=== PATIENT | female | born 1975 | race African-American/Black ===

== ENCOUNTER 2016-08-04 21:48 | Emergency (ER) | payer OTHER ==
[2016-08-04 21:53] VITALS: BP 180/90; PULSE 84; TEMP 98.1; BMI 39.5
[2016-08-04] MEDS ORDERED: OXYCODONE/APAP 5/325MG COMBO TABLET PO ONE (22:17)
--- NOTE | 2016-08-04 22:19 | PDOC ---
History of Present Illness - General History Source: Patient <Douglas Guadalupe - Last Filed: 08/05/16 02:11> - General History Source: Patient Exam Limitations: No Limitations - History of Present Illness Initial Comments: 08/04/16 22:23 The patient is a 41 year old female with no significant past medical history, who presents to the ER with left upper extremity pain s/p trip and fall earlier today. Patient states she tripped and fell down the stairs. She states she landed on her left shoulder, left elbow, and left wrist. On interview, patient reports she is unable to move her left upper extremity secondary to pain. Patient says she is right hand dominant. Denies head or neck trauma Denies loss of consciousness Denies nausea, vomiting Denies paresthesia or numbness <Suzanne Breen - Last Filed: 08/05/16 02:25> - General Chief Complaint: Injury Stated Complaint: FALL/INJURY Time Seen by Provider: 08/04/16 22:11 Past History - Psycho/Social/Smoking Cessation Hx Suicidal Ideation: No Smoking History: Never smoked <Douglas Guadalupe - Last Filed: 08/05/16 02:11> <Suzanne Breen - Last Filed: 08/05/16 02:25> - Past Medical History Allergies/Adverse Reactions: Allergies Allergy/AdvReac Type Severity Reaction Status Date / Time No Known Allergies Allergy Verified 08/04/16 21:52 Home Medications: Ambulatory Orders Ibuprofen 800 mg PO TID #30 tablet 08/05/16 Oxycodone HCl/Acetaminophen [Percocet 5-325 mg Tablet] 1 - 2 tab PO Q6H #20 tablet MDD 4 08/05/16 Review of Systems - Review of Systems Comments:: 08/04/16 22:23 CONSTITUTIONAL: Absent: fever, no chills, no fatigue EYES: Absent: visual changes ENT: Absent: ear pain, no sore throat CARDIOVASCULAR: Absent: chest pain, no palpitations RESPIRATORY: Absent: cough, no SOB GI: Absent: abdominal pain, no nausea, no vomiting, no constipation, no diarrhea GENITOURINARY: Absent: dysuria, no frequency, no hematuria MUSCULOSKELETAL: Present: (+) pain in the LUE and decreased ROM secondary to pain Absent: back pain, no arthralgia, no myalgia SKIN: Absent: rash NEURO: Absent: headache <Suzanne Breen - Last Filed: 08/05/16 02:25> *Physical Exam - Vital Signs Last Vital Signs Temp Pulse Resp BP Pulse Ox 98.1 F 84 20 180/90 08/04/16 21:52 08/04/16 21:52 08/04/16 21:52 08/04/16 21:52 <Douglas Guadalupe - Last Filed: 08/05/16 02:11> - Vital Signs Last Vital Signs Temp Pulse Resp BP Pulse Ox 98.1 F 84 20 180/90 08/04/16 21:52 08/04/16 21:52 08/04/16 21:52 08/04/16 21:52 - Physical Exam Comments: 08/04/16 22:24 GENERAL: Well-appearing, well-nourished. No apparent distress. HEENT: Normocephalic, atraumatic. PERRL, EOM intact. CARDIOVASCULAR: Normal S1, S2. Regular rate and rhythm. PULMONARY: Clear to auscultation bilaterally. ABDOMEN: Soft, non-distended, non-tender. EXTREMITIES: Tenderness to the left shoulder, left humerus,left forearm, and left wrist. Decreased ROM of the LUE secondary to pain. No bony deformity. Mild swelling in the left shoulder. SKIN: Warm, dry. No rash NEUROLOGICAL: No focal neurological deficits. <Suzanne Breen - Last Filed: 08/05/16 02:25> Procedures - Additional Procedures Progress: 08/05/16 01:09 Shoulder traction- countertraction was performed. Patient received 6 mg of morphine for analgesia and 10 cc of 1% lidocaine interarticular space of left shoulder. 08/05/16 02:24 Post shoulder traction -countertraction: Shoulder in place <JamshidSuzanne - Last Filed: 08/05/16 02:25> Medical Decision Making - Medical Decision Making 08/05/16 02:13 Dr. Guadalupe: The scribe's documentation has been prepared under my direction and personally reviewed by me in its entirery. I confirm that the note above accurately reflects all work, treatment, procedures, and medical decision making performed by me. <Douglas Guadalupe - Last Filed: 08/05/16 02:11> *DC/Admit/Observation/Transfer - Discharge Dispostion Admit: No <Douglas Guadalupe - Last Filed: 08/05/16 02:11> - Attestations Scribe Attestion: 08/04/16 22:25 Documentation prepared by Suzanne Breen, acting as medical investigator for Douglas Guadalupe DO <Suzanne Breen - Last Filed: 08/05/16 02:25> Diagnosis at time of Disposition: Shoulder dislocation Qualifiers: Encounter type: initial encounter Laterality: left Qualified Code(s): S43.005A - Unspecified dislocation of left shoulder joint, initial encounter - Discharge Dispostion Disposition: HOME Condition at time of disposition: Stable - Prescriptions Prescriptions: Ibuprofen 800 mg PO TID #30 tablet Oxycodone HCl/Acetaminophen [Percocet 5-325 mg Tablet] 1 - 2 tab PO Q6H #20 tablet MDD 4 - Referrals Referrals: Jamir Burnette MD [Primary Care Provider] - Otto Rico MD [Staff Physician] - - Patient Instructions Printed Discharge Instructions: DI for Shoulder Dislocation
[2016-08-04] MEDS ORDERED: OXYCODONE/APAP 5/325MG COMBO TABLET ONE (22:22)
[2016-08-05] MEDS ORDERED: LIDOCAINE HCL/PF 1% SDV 5ML VIAL ONE (00:19)
[2016-08-05] MEDS ORDERED: morphine CARPU-JECT 2 MG/1 ML DISP.SYRIN IVPUSH ONE (00:29)
[2016-08-05] MEDS ORDERED: morphine CARPU-JECT 4 MG/1 ML DISP.SYRIN ONE (00:39)
== END 2016-08-05 02:45 | disposition home or self-care (01) ==
LOC: JER 21:48
PROC: 0RSKXZZ Reposition Left Shoulder Joint, External Approach (ICD-10-PCS; principal; 2016-08-04)
PROC: 3E033NZ Introduction of Analgesics, Hypnotics, Sedatives into Peripheral Vein, Percutaneous Approach (ICD-10-PCS; 2016-08-04)
DX: S43.015A Anterior dislocation of left humerus, initial encounter (principal); W10.8XXA Fall (on) (from) other stairs and steps, initial encounter; Y93.89 Activity, other specified; Y92.89 Other specified places as the place of occurrence of the external cause
CPT/HCPCS: 73030-TC-LT; 73060-TC-LT; 73070-TC-LT; 73090-TC-LT; 73110-TC-LT; 73130-TC-LT; 84703; 99283-25